=== PATIENT | female | born 1980 ===

== ENCOUNTER 2016-08-29 13:25 | Inpatient (IN) | payer SELFPAY ==
--- NOTE | 2016-08-29 15:00 | EDM.PDOC ---
[id number] 4d ABDOMINAL PAIN Time Seen by Provider: 08/29/16 14:40 Source: Reports: Patient, Provider History Limitations: Reports: No limitations - History of Present Illness INITIAL COMMENTS - FREE TEXT/NARRATIVE: 35-year-old female sent over from clinic for a CT scan of the abdomen. She's been having intermittent abdominal pain over the past several days, worsening over the last 12 hours. No fever but her evaluation was concerning for appendicitis right lower quadrant pain and a slightly elevated white count. She has a history of a cholecystectomy in the past. Location: other (Pain is mostly across the lower abdomen worse on the right) Quality: Reports: ache, cramping Severity: moderate Associated Symptoms (-Female): Reports: denies other symptoms. 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 Denies: fever, chills HEENT: Reports: No symptoms Respiratory: Denies: Shortness of Breath Cardiovascular: Denies: Chest pain GI/Abdominal: Reports: Abdominal pain. Denies: Nausea, Vomiting : Reports: no symptoms Skin: Reports: no symptoms Neurological: Reports: No Symptoms ED EXAM, GI/ABD - Physical Exam Exam: See Below Exam Limited By: No limitations General Appearance: alert, no apparent distress Eyes: bilateral: normal appearance (No jaundice) Respiratory/Chest: no respiratory distress, lungs clear Cardiovascular: regular rate, rhythm GI/Abdominal: soft, tenderness (Patient is tender with guarding in the right lower quadrant, a small amount of rebound tenderness is present) Course - Vital Signs Last Recorded V/S: Last Vital Signs Temp 96.6 F 08/30/16 02:00 Pulse 58 L 08/30/16 02:00 Resp 16 08/30/16 02:00 BP 100/66 08/30/16 02:00 Pulse Ox 98 08/30/16 02:00 - Orders/Labs/Meds Orders: Active Orders 24 hr Category Date Time Status Abdomen Pelvis w Cont [CT] Stat Exams 08/29/16 14:45 Taken Ampicillin/Sulbactam Na [Unasyn] 1.5 gm Med 08/29/16 22:00 Active Sodium Chloride 0.9% [Normal Saline] 50 ml IV Q6HR Aztreonam [Azactam] 1 gm Med 08/29/16 22:00 Active Sodium Chloride 0.9% [Normal Saline] 100 ml IV Q8HR Medication Orders Hydromorphone HCl (Dilaudid On Site Soil Evaluator 15 Mg In Ns 30 Ml) 0 mg IV ASDIRECTED PRN; Protocol PRN Reason: Pain Ampicillin Sodium/Sulbactam (Sodium 1.5 gm/ Sodium Chloride) 50 mls @ 100 mls/ hr IV Q6HR [facility] Last Admin: 08/30/16 03:45 Dose: 100 mls/hr Admin: 08/29/16 22:36 Dose: 100 mls/hr Aztreonam 1 gm/ Sodium (Chloride) 100 mls @ 200 mls/hr IV Q8HR [facility] Last Admin: 08/30/16 05:36 Dose: 200 mls/hr Infusion: 08/29/16 22:33 Dose: 200 mls/hr Admin: 08/29/16 22:03 Dose: 200 mls/hr Lactated Ringer's (Ringers, Lactated) 1,000 mls @ 125 mls/hr IV ASDIRECTED [facility] Last Admin: 08/30/16 03:45 Dose: 125 mls/hr Naloxone HCl (Narcan) 0.4 mg IVPUSH Q2M PRN PRN Reason: Respiratory Distress Ondansetron HCl (Zofran) 4 mg IV Q4H PRN PRN Reason: Nausea/Vomiting Sodium Chloride (Saline Flush) 10 ml FLUSH ASDIRECTED PRN PRN Reason: Keep Vein Open Labs: Laboratory Tests 08/29/16 Range/Units 16:48 Urine Color Red Urine Appearance Cloudy Urine pH 8.0 (4.5-8.0) Ur Specific [place] 1.010 (1.008-1.030) Urine Protein 30 H (NEGATIVE) mg/dL Urine Glucose (UA) Normal (NEGATIVE) mg/dL Urine Ketones Negative (NEGATIVE) mg/dL Urine Occult Blood Large (NEGATIVE) Urine Nitrite Negative (NEGATIVE) Urine Bilirubin Negative (NEGATIVE) Urine Urobilinogen Normal (NORMAL) mg/dL Ur Leukocyte Esterase Small (NEGATIVE) Urine RBC Packed H (0-5) Meds: Medications Generic Name Dose Route Start Last Admin Trade Name Marisela PRN Reason Stop Dose Admin Hydromorphone HCl 0 mg 08/29/16 17:37 Dilaudid On Site Soil Evaluator 15 Mg In Ns 30 Ml IV ASDIRECTED PRN Pain Protocol Ampicillin Sodium/Sulbactam 50 mls @ 100 mls/hr 08/29/16 22:00 08/30/16 03:45 Sodium 1.5 gm/ Sodium Chloride IV 100 mls/hr Q6HR MANDI Administration Aztreonam 1 gm/ Sodium 100 mls @ 200 mls/hr 08/29/16 22:00 08/30/16 05:36 Chloride IV 200 mls/hr Q8HR MANDI Administration Lactated Ringer's 1,000 mls @ 125 mls/hr 08/29/16 17:37 08/30/16 03:45 Ringers, Lactated IV 125 mls/hr ASDIRECTED MANDI Administration Naloxone HCl 0.4 mg 08/29/16 17:37 Narcan IVPUSH Q2M PRN Respiratory Distress Ondansetron HCl 4 mg 08/29/16 17:37 Zofran IV Q4H PRN Nausea/Vomiting Sodium Chloride 10 ml 08/29/16 17:37 Saline Flush FLUSH ASDIRECTED PRN Keep Vein Open Discontinued Medications Generic Name Dose Route Start Last Admin Trade Name Marisela PRN Reason Stop Dose Admin Sodium Chloride 70 mls @ 3 mls/sec 08/29/16 15:15 08/29/16 15:35 Normal Saline IV 3 mls/sec ASDIRECTED MANDI Administration Potassium Chloride 40 meq/ 100 mls @ 25 mls/hr 08/29/16 18:14 08/29/16 20:03 Premix IV 08/29/16 22:13 Not Given ONETIME ONE Potassium Chloride Confirm 08/29/16 19:25 08/29/16 20:02 Kcl 20 Meq In Water 100 Ml Administered 08/29/16 19:26 Not Given Dose 100 mls @ as directed .ROUTE .STK-MED ONE Potassium Chloride 20 meq/ 101 mls @ 50.5 mls/hr 08/29/16 20:00 08/29/16 23: 25 Lidocaine HCl 1 ml/ Premix IV 08/29/16 23:59 50.5 mls/hr Q2H MANDI Administration Potassium Chloride 20 meq/ 100 mls @ 50 mls/hr 08/29/16 22:00 Premix IV 08/29/16 23:59 ONETIME ONE Potassium Chloride Confirm 08/29/16 22:19 08/29/16 23:25 Kcl 20 Meq In Water 100 Ml Administered 08/29/16 22:20 Not Given Dose 100 mls @ as directed .ROUTE .STK-MED ONE Iopamidol 93 ml 08/29/16 15:14 08/29/16 15:35 Isovue-300 (61%) IV 08/30/16 15:15 93 ml . DIRECTED PRN Administration RADIOLOGY EXAM Lidocaine HCl Confirm 08/29/16 19:23 08/29/16 20:01 Xylocaine-Mpf 1% Administered 08/29/16 19:24 Not Given Dose 5 ml .ROUTE .STK-MED ONE Lidocaine HCl 2 ml 08/29/16 19:31 08/29/16 20:00 Xylocaine-Mpf 1% INJECT 08/29/16 19:32 2 ml ONETIME ONE Administration - Re-Assessments/Exams Free Text/Narrative Re-Assessment/Exam: 08/29/16 15:00 Labs were reviewed from the clinic. A CT of the abdomen and pelvis with IV contrast was obtained. 08/29/16 16:24 CT of the abdomen revealed a somewhat hyperemic and mildly dilated appendix. Her condition was discussed with surgery, with recommendations for her to be admitted by the hospitalist service with IV antibiotics and pain control and surgery tomorrow morning if needed. Departure - Departure Time of Disposition: 18:33 Disposition: Home, Self-Care 01 Condition: good Clinical Impression: Abdominal pain Qualifiers: Abdominal location: right lower quadrant Qualified Code(s): R10.31 - Right lower quadrant pain Appendicitis Qualifiers: Appendicitis type: acute appendicitis Acute appendicitis type: with localized peritonitis Qualified Code(s): K35.3 - Acute appendicitis with localized peritonitis - My Orders Last 24 Hours: My Active Orders 08/29/16 14:45 Abdomen Pelvis w Cont [CT] Stat - Assessment/Plan Last 24 Hours: My Active Orders 08/29/16 14:45 Abdomen Pelvis w Cont [CT] Stat
[2016-08-29] MEDS ORDERED: Iopamidol 612 MG/ML 100 ML Bottle IV PRN (15:14)
[2016-08-29] MEDS ORDERED: HYDROmorphone/Normal Saline 15 MG/30 ML PCA IV PRN (17:37)
[2016-08-29] MEDS ORDERED: Ondansetron 4 MG/2 ML SDV IV PRN (17:37)
[2016-08-29] MEDS ORDERED: Naloxone 0.4 MG/ML SDV IVPUSH PRN (17:37)
[2016-08-29] MEDS ORDERED: Lactated Ringers 1,000 ML IV SCH (17:37)
[2016-08-29] MEDS ORDERED: Sodium Chloride 0.9% 10 ML Syringe FLUSH PRN (17:37)
[2016-08-29] MEDS ORDERED: Potassium Chloride 40 MEQ in Premix Bag 1 BAG IV ONE (18:14)
--- NOTE | 2016-08-29 18:20 | PCM.HP ---
H&P History of Present Illness - General Date of Service: 08/29/16 Admit Problem/Dx: Admission Diagnosis/Problem Admission Diagnosis/Problem Acute appendicitis Source of Information: Patient, Family, Provider, RN notes reviewed History Limitations: Reports: No limitations - History of Present Illness Initial Comments - Free Text/Narative: This patient is a 35-year-old woman who is admitted through the emergency department with right lower quadrant abdominal pain and nausea secondary to acute appendicitis. She's had intermittent pain over the past week but over the past 24 hours pain has become more intense. It is present in the mid abdomen and right lower quadrant, also radiates to the right lower back. White blood cell count is normal and she is been afebrile with stable vital signs. CT scan of the abdomen shows evidence of early appendicitis. She's had no difficulty with general anesthetic with 2 previous surgeries and no family history of adverse reaction to general anesthesia. She denies any history of deep vein thrombosis or pulmonary embolism. 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 Denies: Constipation, Diarrhea, Difficulty swallowing, Vomiting Genitourinary: Reports: no symptoms Musculoskeletal: Reports: no symptoms Skin: Reports: no symptoms Psychiatric: Reports: no symptoms Neurological: Reports: No Symptoms Hematologic/Lymphatic: Reports: no symptoms Immunologic: Reports: no symptoms Exam - Exam Exam: See Below - Vital Signs Vital Signs: Last Vital Signs Temp 99.3 F 08/29/16 17:48 Pulse 64 08/29/16 17:48 Resp 16 08/29/16 17:48 BP 134/82 08/29/16 17:48 Pulse Ox 100 08/29/16 17:48 Weight: 137 lb 12.623 oz - Exam Quality Assessment: DVT prophylaxis General: alert, oriented, cooperative HEENT: Conjunctiva clear, EOMI, Hearing intact, Mucosa moist & pink, Nares patent, Normal nasal septum, Posterior pharynx clear, Pupils equal, Pupils reactive Neck: supple, trachea midline, +2 carotid pulse wo bruit Lungs: Clear to auscultation, Normal respiratory effort Cardiovascular: regular rate, regular rhythm, normal S1, normal S2. No: systolic murmur, diastolic murmur Abdomen: soft, guarding, rebound, tenderness, hypoactive bowel sounds. No: organomegaly, distention, rigidity Back Exam: normal inspection, full range of motion, NT Extremities: 3, normal inspection, 10 Skin: warm, dry, intact Neurological: cranial nerves intact, strength equal bilateral, normal speech, normal tone, sensation intact. No: focal deficit Neuro Extensive - Mental Status: alert, oriented x3, normal mood/affect, normal cognition, memory intact - Patient Data Lab Results last 24 hrs: Laboratory Results - last 24 hr 08/29/16 08/29/16 Range/Units 17:35 17:35 WBC 9.2 (4.5-11.0) K/uL RBC 4.72 (3.30-5.50) M/uL Hgb 13.5 (12.0-15.0) g/dL Hct 38.9 (36.0-48.0) % MCV 82 (80-98) fL MCH 29 (27-31) pg MCHC 35 (32-36) % Plt Count 264 (150-400) K/uL Neut % (Auto) 64 (36-66) % Lymph % (Auto) 27 (24-44) % Perry % (Auto) 8 H (2-6) % Eos % (Auto) 1 L (2-4) % Baso % (Auto) 1 (0-1) % Sodium 143 (140-148) mmol/L Potassium 3.5 L (3.6-5.2) mmol/L Chloride 107 (100-108) mmol/L Carbon Dioxide 27 (21-32) mmol/L Anion Gap 12.5 (5.0-14.0) mmol/L BUN 9 (7-18) mg/dL Creatinine 0.6 (0.6-1.0) mg/dL Est Cr Clr Drug Dosing 92.21 mL/min Estimated GFR (MDRD) > 60 (>60) Glucose 91 (74-106) mg/dL Calcium 8.2 L (8.5-10.1) mg/dL Total Bilirubin 2.0 H (0.2-1.0) mg/dL AST 7 L (15-37) U/L ALT 25 (12-78) U/L Alkaline Phosphatase 83 (46-116) U/L Total Protein 7.2 (6.4-8.2) g/dL Albumin 3.5 (3.4-5.0) g/dL Globulin 3.7 H (2.3-3.5) g/dL Albumin/Globulin Ratio 1.0 L (1.2-2.2) Result Diagrams: 08/29/16 17:35 08/29/16 17:35 *Q Meaningful Use (ADM) - VTE *Q VTE Criteria *Q: VTE Pharmacological Contraindications *Q: Patient Scheduled Surgery - VTE Risk Assess *Q Each Risk Factor Represents 1 Point: Minor Surgery Planned Total Score 1 Point Risk Factors: 1 Each Risk Factor Represents 2 Points: None Total Score 2 Point Risk Factors: 0 Each Risk Factor Represents 3 Points: None Total Score 3 Point Risk Factors: 0 Each Risk Factor Represents 5 Points: None Total Score 5 Point Risk Factors: 0 Venous Thromboembolism Risk Factor Score *Q: 1 - Stroke *Q Stroke Criteria *Q: - AMI *Q AMI Criteria *Q: Problem List Initiated/Reviewed/Updated: Yes Orders Last 24hrs: Active Orders 24 hr Category Date Time Status Patient Status [ADT] Routine ADT 08/29/16 17:37 Active Communication Order [RC] STAT Care 08/29/16 17:37 Active Intake and Output [RC] QSHIFT Care 08/29/16 17:37 Active Notify Provider Consults [RC] ASDIRECTED Care 08/29/16 17:37 Active Notify Provider Vital Signs [RC] ASDIRECTED Care 08/29/16 17:37 Active Notify Provider [RC] PRN Care 08/29/16 17:37 Active Oxygen Therapy [RC] PRN Care 08/29/16 17:37 Active TOW MOTOR DRIVER Record [RC] PER UNIT ROUTINE Care 08/29/16 17:37 Active Peripheral IV Care [RC] . DIRECTED Care 08/29/16 17:37 Active Pulse Oximetry [RC] CONTINUOUS Care 08/29/16 17:37 Active Up ad Tammy [RC] ASDIRECTED Care 08/29/16 17:37 Active VTE/DVT Education [RC] Per Unit Routine Care 08/29/16 17:37 Active Vital Signs [RC] Q4H Care 08/29/16 17:37 Active Consult to Physician [CONS] Routine Cons 08/29/16 17:37 Ordered Nothing per Oral Now Diet [DIET] Diet 08/29/16 Dinner Active Abdomen Pelvis w Cont [CT] Stat Exams 08/29/16 14:45 Taken BASIC METABOLIC PANEL,BMP [CHEM] AM Lab 08/30/16 05:11 Ordered CBC WITH AUTO DIFF [HEME] AM Lab 08/30/16 05:11 Ordered CBC WITH AUTO DIFF [HEME] Stat Lab 08/29/16 17:31 Ordered COMPREHENSIVE METABOLIC PN,CMP [CHEM] Stat Lab 08/29/16 17:31 Ordered UA W/MICROSCOPIC [URIN] Urgent Lab 08/29/16 16:48 Uncollected Ampicillin/Sulbactam Na [Unasyn] 1.5 gm Med 08/29/16 22:00 Active Sodium Chloride 0.9% [Normal Saline] 50 ml IV Q6HR Aztreonam [Azactam] 1 gm Med 08/29/16 22:00 Active Sodium Chloride 0.9% [Normal Saline] 100 ml IV Q8HR HYDROmorphone/Normal Saline [Dilaudid TOW MOTOR DRIVER 15 MG in NS Med 08/29/16 17:37 Ordered 30 ML] See Protocol IV ASDIRECTED PRN Lactated Ringers [Ringers, Lactated] 1,000 ml Med 08/29/16 17:37 Ordered IV ASDIRECTED Naloxone [Narcan] Med 08/29/16 17:37 Ordered 0.4 mg IVPUSH Q2M PRN Ondansetron [Zofran] Med 08/29/16 17:37 Ordered 4 mg IV Q4H PRN Potassium Chloride [KCL 40 MEQ in Water 100 ML] 40 meq Med 08/29/16 18:14 Ordered Premix Bag 1 bag IV ONETIME Sodium Chloride 0.9% [Saline Flush] Med 08/29/16 17:37 Ordered 10 ml FLUSH ASDIRECTED PRN Medication Discontinuation Instructions [OM.PC] Stat Ot 08/29/16 17:37 Ordered Peripheral IV Insertion Adult [OM.PC] Routine Ot 08/29/16 17:37 Ordered Sequential Compression Device [OM.PC] Per Unit Routine Ot 08/29/16 17:37 Ordered VTE Pharmacological Contraindications [AST] Per Unit Ot 08/29/16 17:37 Ordered Routine Resuscitation Status Routine Resus Stat 08/29/16 17:19 Ordered Medication Orders Hydromorphone HCl (Dilaudid Billet Driller 15 Mg In Ns 30 Ml) 0 mg IV ASDIRECTED PRN; Protocol PRN Reason: Pain Ampicillin Sodium/Sulbactam (Sodium 1.5 gm/ Sodium Chloride) 50 mls @ 100 mls/ hr IV Q6HR MANDI Aztreonam 1 gm/ Sodium (Chloride) 100 mls @ 200 mls/hr IV Q8HR MANDI Lactated Ringer's (Ringers, Lactated) 1,000 mls @ 125 mls/hr IV ASDIRECTED MANDI Naloxone HCl (Narcan) 0.4 mg IVPUSH Q2M PRN PRN Reason: Respiratory Distress Ondansetron HCl (Zofran) 4 mg IV Q4H PRN PRN Reason: Nausea/Vomiting Sodium Chloride (Saline Flush) 10 ml FLUSH ASDIRECTED PRN PRN Reason: Keep Vein Open Assessment/Plan Comment:: ASSESSMENT AND PLAN ACUTE APPENDICITIS-intermittent symptoms over the past week, significantly worse over the past 24 hours. Afebrile with stable vital signs, normal white blood cell count. CT scan shows evidence of early appendicitis. -N.p.o. -IV fluids for hydration -Antiemetic therapy as needed -Dilaudid via TOW MOTOR DRIVER for pain control -IV Unasyn and Azactam -Consult Dr. Merino in a.m. for surgical opinion MAINTENANCE ISSUES -DVT prophylaxis; SCUDs -GI prophylaxis; not indicated -Hernandez catheter; not indicated -Nutrition; n.p.o. -Nicotine dependence; not required CODE STATUS-FULL CODE ADMISSION STATUS-patient will be admitted to inpatient status, expect at least a 2 night hospital stay for evaluation and management of problems as outlined above. At the time of this admission I do not reasonably expected evaluation and management of this problem will require more than a 96 hour hospital stay. DISPOSITION-anticipate discharge to home after the hospital stay. PRIMARY CARE PROVIDER-none
[2016-08-29] MEDS ORDERED: Potassium Chloride 100 ML ONE ×2 (19:25→22:19)
[2016-08-29] MEDS: Potassium Chloride 20 MEQ, Lidocaine 1% 1 ML in Premix Bag 1 BAG IV SCH ×2 (20:01→23:25)
[2016-08-29] MEDS ORDERED: Potassium Chloride 20 MEQ in Premix Bag 1 BAG IV ONE (22:00)
[2016-08-29] MEDS: Aztreonam 1 GM in Sodium Chloride 0.9% 100 ML IV SCH (22:03)
[2016-08-29] MEDS: Ampicillin/Sulbactam Na 1.5 GM in Sodium Chloride 0.9% 50 ML IV SCH (22:36)
[2016-08-30] MEDS: Ampicillin/Sulbactam Na 1.5 GM in Sodium Chloride 0.9% 50 ML IV SCH (03:45)
[2016-08-30] MEDS: Aztreonam 1 GM in Sodium Chloride 0.9% 100 ML IV SCH (05:36)
[2016-08-30] MEDS ORDERED: Ampicillin/Sulbactam Na 3 GM in Sodium Chloride 0.9% 100 ML IV ONE (10:00)
[2016-08-30] MEDS ORDERED: Ondansetron 4 MG/2 ML SDV ONE (11:42)
[2016-08-30] MEDS ORDERED: Neostigmine Methylsulfate 1 MG/ML 5 ML Syringe ONE (11:42)
[2016-08-30] MEDS ORDERED: Dexamethasone 4 MG/ML SDV ONE (11:42)
[2016-08-30] MEDS ORDERED: fentaNYL 250 MCG/5 ML SDV ONE (11:42)
[2016-08-30] MEDS ORDERED: Rocuronium 50 MG/5 ML Vial ONE (11:42)
[2016-08-30] MEDS ORDERED: Propofol 200 MG/20 ML SDV ONE (11:42)
[2016-08-30] MEDS ORDERED: Midazolam 1 MG/ML 2 ML SDV ONE (11:42)
[2016-08-30] MEDS ORDERED: Bupivacaine 0.5%/EPINEPHrine 1:200,000 50 ML MDV ONE (12:09)
[2016-08-30] MEDS ORDERED: Naloxone 0.4 MG/ML SDV ONE (12:49)
[2016-08-30] MEDS: Aztreonam/Dextrose-Water 1 GM in Premix Bag 1 BAG IV SCH ×2 (14:34→22:10)
[2016-08-30] MEDS: Ondansetron 4 MG/2 ML SDV IV PRN ×2 (14:44→18:57)
[2016-08-30] MEDS: Dextrose 5%-Lactated Ringers 1,000 ML IV SCH (17:32)
[2016-08-30] MEDS ORDERED: Phenol/Sodium Phenolate Mouthwash 180 ML Bottle PO PRN (18:33)
[2016-08-30] MEDS ORDERED: diphenhydrAMINE 50 MG/ML SDV IVPUSH PRN (21:54)
[2016-08-30] MEDS ORDERED: diphenhydrAMINE 25 MG Cap PO PRN (21:55)
[2016-08-30] MEDS ORDERED: diphenhydrAMINE 50 MG/ML SDV ONE (21:57)
[2016-08-31] MEDS: Aztreonam/Dextrose-Water 1 GM in Premix Bag 1 BAG IV SCH ×2 (05:19→14:02)
[2016-08-31] MEDS: Dextrose 5%-Lactated Ringers 1,000 ML IV SCH (06:48)
[2016-08-31] MEDS ORDERED: Acetaminophen/HYDROcodone 325-5 MG Tab PO PRN (07:44)
[2016-08-31] MEDS: Ampicillin/Sulbactam Na 1.5 GM in Sodium Chloride 0.9% 50 ML IV SCH ×2 (12:01→18:09)
[2016-08-31 13:28] VITALS: BP 130/83
--- NOTE | 2016-08-31 13:50 | PN ---
DATE OF SERVICE: 08/30/2016 The patient continues to have some discomfort in the right lower quadrant. On examination, she is fairly tender in that area. White count is down a bit lower. This is a case we could potentially treat non-operatively, but I think given the overall picture, a definitive laparoscopic appendectomy today would be a good way to go in terms of getting over this and back to work in the most efficient manner, with minimal additional follow-up required. The potential risks of the procedure were reviewed with the patient, and she wishes to proceed; the surgery will be undertaken later on this morning. Jose Merino MD /[id number]
[2016-08-31] MEDS ORDERED: Ampicillin/Sulbactam Na 1.5 GM in Sodium Chloride 0.9% 50 ML IV SCH (16:00)
--- NOTE | 2016-08-31 23:32 | DISCH ---
ADMISSION DIAGNOSIS: Abdominal pain. DISCHARGE DIAGNOSIS: Laparoscopic appendectomy for acute appendicitis. HISTORY: Kaur Mccormick is a 35-year-old female who presented to the emergency room with abdominal pain. After preoperative evaluation and discussion of possible risks and possible complications, she wished to proceed with surgical procedure. HOSPITAL COURSE: Kaur had her surgery on 08/30/2016. She had no operative complications. On postop day #1, she was ready to be discharged to home. She did receive IV antibiotics of Azactam and Unasyn. Her pain was managed. Her activity was good. Vital signs stable and she was able to be discharged on postop day #1. PHYSICAL EXAMINATION: GENERAL: Kaur Mccormick is a 35-year-old female. VITAL SIGNS: Height is 4 feet 11.84 inches, weight is 138 pounds. TPR is 98, 58, 16. Blood pressure 104/76. HEENT: Negative. NECK: Supple. HEART: Regular rate and rhythm. LUNGS: Clear. ABDOMEN: Dressings dry and intact. Abdominal binder is on. EXTREMITIES: Without peripheral edema. DISPOSITION: Discharged to home. CONDITION: Stable and improving. FOLLOWUP APPOINTMENT: Rosy Yepez PA-C, on 09/09/2016 at 11 a.m. HOME MEDICATIONS: 1. Eldridge 5/325 mg 1-2 p.o. q.4 hours p.r.n. pain, #50. 2. Milk of magnesia 30 mL, 2 were sent home with patient to take 1 daily p.r.n. constipation. DIET: After discharge, usual diet as tolerated. Drink 8 to 10 glasses of water a day. ACTIVITY: After discharge, as tolerated. No lifting greater than 10 pounds for 2 weeks[address] Driving, do not drive on pain medication. May shower. Notify provider if any fever, increased pain, swelling, redness, drainage, nausea, or vomiting. Wound incision care, keep site clean and dry. Wear abdominal binder for 2 weeks and then as tolerated. SPECIAL INSTRUCTION: Use incentive spirometer 10 times every hour while awake.
--- NOTE | 2016-09-07 22:32 | OR ---
DATE OF PROCEDURE: 08/30/2016 PREOPERATIVE DIAGNOSIS: Acute appendicitis. POSTOPERATIVE DIAGNOSIS: Acute appendicitis. OPERATIVE PROCEDURE: Laparoscopic appendectomy ([id number]). ANESTHESIA: General. INDICATION FOR PROCEDURE: Please see progress note dated today. Potential risks of the procedure were reviewed with the patient and she wishes to proceed. DETAILS OF PROCEDURE: The patient was taken to the operating room and placed in a supine position. After general endotracheal anesthesia was induced, a Hernandez catheter was inserted and the abdomen prepped and draped. Three fingerbreadths superior and to the left of the umbilicus, a transverse incision was made and the peritoneal cavity entered under direct vision with Optiview trocar inflated to 15 mmHg pressure with CO2. Laparoscope was then reinserted. No underlying trocar insertion site injuries were seen. Following this, 12 mm trocars were placed in the right upper quadrant as well as left lower quadrant and the lower abdomen examined. As expected, the patient had an acute appendicitis which was not perforated, associated with any periappendiceal fluid collection. This was mobilized upward and dissection at the base of the appendix adjacent to the cecum from the mesentery was then initiated with Harmonic scalpel and the appendix then excised, flush with the cecum with a RE purple load and this was delivered through the left lower quadrant trocar site without any contamination of the abdominal wall. At this point, no further problems were noted. The Zachary-Aparicio drain was felt not to be necessary and the incisions were then closed with 0 Vicryl stitch at the fascia level and skin closed with 4-0 Vicryl skin stitch. Dressing was applied. The patient was taken to the recovery room in satisfactory condition. Jose Merino MD /[id number]
== END 2016-08-31 18:45 | disposition home or self-care (01) | DRG 343 ==
LOC: JP.ED 13:25 → JP.MS 17:18
PROVIDERS: ADMIT Hospitalist; ATTEND Surgery
PROC: 0DTJ4ZZ Resection of Appendix, Percutaneous Endoscopic Approach (ICD-10-PCS; principal; 2016-08-30)
DX: K35.80 Unspecified acute appendicitis (principal)
CPT/HCPCS: 36415; 74177; 80048; 80053; 81001; 84703; 85025; 88304; 94762; 96360; 96361; 99221-AI; 99284; 99284-25; A9270-GY; J0287; J0295; J1100; J1170; J2250; J2310; J2405; J2704; J3010; J3480; J3490; J7030; J7042; J7050; J7120; Q9967; S0073